=== PATIENT | male | born 1975 | race Caucasian/White ===

== ENCOUNTER 2020-11-29 05:53 | Outpatient (CLI) | payer SELFPAY ==
[~2020-11-29] VITALS: Ht 182.9 cm; Wt 97.7 kg
== END 2020-11-29 16:10 | disposition home or self-care (01) ==
LOC: PREOP 05:53
PROVIDERS: ATTEND Urology
DX: Z01.818 Encounter for other preprocedural examination (principal)

== ENCOUNTER 2020-12-06 06:48 | Day surgery (SDC) | payer MEDICARE ==
[2020-12-06] VITALS (10 sets, daily range): BP systolic 120–138; BP diastolic 80–96
[~2020-12-06] VITALS: Ht 182.9 cm; Wt 97.7 kg
--- NOTE | 2020-12-06 07:17 | Progress Note-Pre Operative ---
Pre-Operative Progress Note H&P Reviewed The H&P was reviewed, patient examined and no changes noted. Date Seen by Provider: Dec 06, 2020 Time Seen by Provider: 07:17 Date H&P Reviewed: Dec 06, 2020 Time H&P Reviewed: 07:17 Pre-Operative Diagnosis: SCROTAL CYSTS THIERRY BOONE MD Dec 06, 2020 07:17
--- NOTE | 2020-12-06 07:22 | Progress Note-Post Operative ---
Post-Operative Progess Note Surgeon (s)/Lead Person (s) Surgeon THIERRY BOONE MD Lead Person: NONE Pre-Operative Diagnosis SCROTAL CYSTS AND BPH Post-Operative Diagnosis SAME Procedure & Operative Findings Date of Procedure 12/06/20 Procedure Performed/Findings CYSTOSCOPY AND EXCISION OF SCROTAL CYSTS Anesthesia Type GENERAL Estimated Blood Loss Estimated blood loss (mL): NONE Specimens/Packing Specimens Removed SCROTAL CYSTS Packing: NONE THIERRY BOONE MD Dec 06, 2020 07:22
[2020-12-06] MEDS ORDERED: ceFAZolin INJECTION 1,000 MG in WATER (STERILE) FOR INJECTION 10 ML IV ONE (07:30)
--- NOTE | 2020-12-06 07:38 | Discharge Inst-Urology ---
Discharge Inst-Urology Reconcile Patient Problems Problems Reviewed?: Yes Final Diagnosis SCROTAL CYSTS Patient Instructions/Follow Up Plan/Assessment/Instructions Please make appointment to been seen in office in 3 weeks. Showers, no bath Neosporin + pain ointment to scrotal areas BID for 5-7 days Ice to scrotum in RR and at home for 6 hours and then prn Tylenol or IBP PRN Increase oral fluids for 48 hours and then as needed. Diet and Activity as tolerated. If questions or concerns contact your physician Or seek help at emergency department. THIERRY BOONE MD Dec 06, 2020 07:38
[2020-12-06] MEDS ORDERED: MIDAZOLAM 2 MG/2 ML (VERSED) VIAL ONE (07:57)
[2020-12-06] MEDS ORDERED: ONDANSETRON 4 MG/2 ML (SDV) Z0FRAN ONE (07:57)
[2020-12-06] MEDS ORDERED: proPOfol 200 MG/20 ML (DIPRIVAN) VIAL IV ONE ×2 (07:57→08:26)
[2020-12-06] MEDS ORDERED: fentaNYL INJ 100 MCG/2 ML AMP ONE (07:58)
[2020-12-06] MEDS ORDERED: LIDOCAINE UROJET 2% GEL 10 ML PKG ONE (08:11)
[2020-12-06] MEDS: LACTATED RINGERS 1,000 ML IV PRN ×2 (08:17→09:26)
[2020-12-06] MEDS ORDERED: LIDOCAINE PF 2% 5 ML (XYLOCAINE) VIAL ONE (08:40)
[2020-12-06] MEDS ORDERED: SEVOFLURANE (ULTANE) 15 ML INHAL SOLN ONE ×2 (08:40→08:46)
[2020-12-06] MEDS ORDERED: NEOSPORIN + PAIN RELIEF CREAM 15 GM ONE (08:45)
[2020-12-06] MEDS ORDERED: KETOROLAC 30 MG/ML VIAL IVP ONE (10:00)
[2020-12-06] MEDS ORDERED: KETOROLAC 30 MG/ML VIAL ONE (10:06)
[2020-12-06] MEDS ORDERED: TRM50T PO (11:16)
--- NOTE | 2020-12-06 13:02 | OPERATIVE REPORT ---
DATE OF SERVICE: 12/06/2020 PREOPERATIVE DIAGNOSES: Benign prostatic hypertrophy and scrotal cyst, "sebaceous". POSTOPERATIVE DIAGNOSES: Benign prostatic hypertrophy and scrotal cyst, "sebaceous". OPERATION PERFORMED: Cystoscopy and excision of scrotal cyst. SURGEON: Jesus Boone MD. ANESTHESIA: General. COMPLICATIONS: None. DESCRIPTION OF PROCEDURE: Under satisfactory general anesthesia, the patient in supine position, the genitalia were prepped and draped in the usual sterile fashion. A flexible cystoscope was introduced under vision. The anterior urethra was normal. The prostate was nonobstructing. Bladder neck was open. Bladder was normal. There was no trabeculation. Ureteric orifices were normal with clear efflux. No foreign body, bladder tumor or stone visualized. Cystoscopy was confirmed in an antegrade fashion and the cystoscope was removed. Then, the patient was prepped and draped in a more sterile fashion for the excision of scrotal cyst. The scrotum was prepped and draped and then the large sebaceous cyst was held with a [place] and an elliptical incision was made around it with margin and the cyst was removed. The skin and the underlying tissue was removed completely. Bleeders were cauterized. Hemostasis was complete. Closure was performed with a running 3-0 chromic catgut suture. In a similar fashion, the previously infected cyst that drained spontaneously and treated with antibiotic was identified and again tilted in a similar fashion to remove any remnants of the cyst and the underlying area and again hemostasis was complete. Closure was performed in a similar fashion. Neosporin plus pain was applied dressing. The patient tolerated the procedure and anesthesia well and was sent to recovery room in a stable condition. ESTIMATED BLOOD LOSS: Less than 50 mL, which was replaced. Job ID: [id number] DocumentID: [id number] Dictated Date: 12/06/2020 08:55:08 Centrifugal Machine Tender Date: 12/06/2020 13:02:04 Dictated By: JESUS BOONE MD
--- NOTE | 2020-12-06 14:39 | Anesthesia-General Post-Op ---
General Patient Condition Mental Status/LOC: Same as Preop Cardiovascular: Satisfactory Nausea/Vomiting: Absent Respiratory: Satisfactory Pain: Controlled Complications: Absent Post Op Complications Complications None Follow Up Care/Instructions Patient Instructions None needed. Anesthesia/Patient Condition Patient Condition Patient is doing well, no complaints, stable vital signs, no apparent adverse anesthesia problems. No complications reported per nursing. TOM SCHMIDT CRNA Dec 06, 2020 14:39
== END 2020-12-06 11:26 | disposition home or self-care (01) ==
LOC: SDC 06:48
PROVIDERS: ATTEND Urology
DX: L72.3 Sebaceous cyst (principal); N40.0 Benign prostatic hyperplasia without lower urinary tract symptoms
CPT/HCPCS: 87081; 88304

== ENCOUNTER → 2021-06-05 | Outpatient (CLI) | payer MEDICARE ==
[~2021-06-05] MED LIST: TRM50T PO
[2021-06-05 09:36] LABS: BASOPHILS # (AUTO) 0.1 10^3/uL (0.0-0.1); BASOPHILS % (AUTO) 1 % (0-10); EOSINOPHILS # (AUTO) 0.1 10^3/uL (0.0-0.3); EOSINOPHILS % (AUTO) 1 % (0-10); HEMATOCRIT 47 % (40-54); HEMOGLOBIN 16.2 g/dL (13.3-17.7); LYMPHOCYTES # (AUTO) 1.3 10^3/uL (1.0-4.0); LYMPHOCYTES % (AUTO) 24 % (12-44); MEAN CORPUSCULAR HEMOGLOBIN 31 pg (25-34); MEAN CORPUSCULAR HGB CONC 34 g/dL (32-36); MEAN CORPUSCULAR VOLUME 91 fL (80-99); MEAN PLATELET VOLUME 11.2 fL (9.0-12.2); MONOCYTES # (AUTO) 0.5 10^3/uL (0.0-1.0); MONOCYTES % (AUTO) 10 % (0-12); NEUTROPHILS # (AUTO) 3.4 10^3/uL (1.8-7.8); NEUTROPHILS % (AUTO) 64 % (42-75); PLATELET COUNT 156 10^3/uL (130-400); WHITE BLOOD COUNT 5.3 10^3/uL (4.3-11.0)
--- NOTE | 2021-06-05 09:50 | Diagnostic Imaging Report ---
INDICATION: Psoriasis vulgaris. TIME OF EXAM: 9:40 AM. COMPARISON: No prior studies are available for comparison. FINDINGS: The heart size is normal. The pulmonary vascularity is unremarkable. The lungs are clear. No infiltrate, effusion, or pneumothorax is detected. IMPRESSION: No acute cardiopulmonary process is detected. Dictated by: Dictated on workstation # [id number]
[2021-06-05 09:56] LABS: ALBUMIN 4.4 GM/DL (3.2-4.5); BILIRUBIN,DIRECT 0.2 MG/DL (0.0-0.3); BILIRUBIN,INDIRECT 0.3 MG/DL; BILIRUBIN,TOTAL 0.5 MG/DL (0.1-1.0); CALCIUM 9.3 MG/DL (8.5-10.1); CREATININE SERUM 0.85 MG/DL (0.60-1.30); POTASSIUM 3.7 MMOL/L (3.6-5.0); TOTAL PROTEIN 7.7 GM/DL (6.4-8.2)
[2021-06-05 22:23] LABS: HEPATITIS C ANTIBODY C Non-Reactive (Non-Reactive)
== END ==
LOC: RAD 09:00
PROVIDERS: ATTEND Nurse Practitioner Family
DX: L40.0 Psoriasis vulgaris (principal); L85.3 Xerosis cutis; L81.4 Other melanin hyperpigmentation
CPT/HCPCS: 71046; 80048; 80061; 80076; 85025; 86704; 86803; 87340; G0499; 36415; 86706